=== PATIENT | female | born 1985 | race Caucasian/White ===

== ENCOUNTER 2023-02-28 19:53 | Emergency (ER) | payer SELFPAY ==
[~2023-02-28] VITALS: Ht 157.5 cm; Wt 85.0 kg
[2023-02-28 20:15] VITALS: BP 157/93; PULSE 86; RESP 20; TEMP 97.6; O2SAT 96
== END 2023-02-28 21:10 | disposition left against medical advice (07) ==
LOC: ER 19:53
DX: S09.90XA Unspecified injury of head, initial encounter (principal); R11.2 Nausea with vomiting, unspecified; W18.39XA Other fall on same level, initial encounter; Y93.89 Activity, other specified; Y92.89 Other specified places as the place of occurrence of the external cause; Y99.8 Other external cause status
CPT/HCPCS: 93005; 99283